=== PATIENT | male | born 1980 | race Caucasian/White ===

== ENCOUNTER 2016-05-27 22:12 | Emergency (ER) | payer SELFPAY ==
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
[2016-05-27] MEDS ORDERED: HYDROcodone /APAP 5/325 1 EACH TABLET PO ONE (23:51)
[2016-05-27] MEDS ORDERED: CYCLOBENZAPRINE HCL 5 MG TABLET PO ONE (23:51)
[2016-05-27] MEDS ORDERED: predniSONE 20 MG TABLET PO ONE (23:51)
[2016-05-28 01:15] VITALS: BP 132/88
== END 2016-05-28 00:20 | disposition home or self-care (01) ==
LOC: ED 22:12
DX: S39.92XA Unspecified injury of lower back, initial encounter (principal); M54.32 Sciatica, left side; V43.62XA Car passenger injured in collision with other type car in traffic accident, initial encounter; Y92.410 Unspecified street and highway as the place of occurrence of the external cause; Y93.9 Activity, unspecified; Y99.9 Unspecified external cause status
CPT/HCPCS: 72131; A9270; 99283

== ENCOUNTER 2017-01-05 20:29 | Emergency (ER) | payer OTHER ==
[2017-01-05 21:11] VITALS: BP 112/69
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
--- NOTE | 2017-01-06 06:30 | Diagnostic Imaging Report ---
ELISABETH PINOT [facility] [address] [facility] [address] [address] Report Submission Date: Jan 05, 2017 9:18:36 PM CDT Patient Study Name: ANGELICA BURGOS Date: Jan 05, 2017 8:59:46 PM CDT Modality Type: CR Gender: M Description: LOWER EXTREMITY : 84 Institution: [facility] Physician: ELISABETH PINTO Right ankle 3 views History: Pain after injury Findings: Diffuse right ankle soft tissue swelling is present without fracture, dislocation, arthropathy, or focal bone lesion. Electronically signed on Jan 05, 2017 9:18:36 PM CDT by: Ean SENA
== END 2017-01-05 21:20 | disposition home or self-care (01) ==
LOC: ED 20:29
DX: S93.401A Sprain of unspecified ligament of right ankle, initial encounter (principal); X58.XXXA Exposure to other specified factors, initial encounter; Y93.9 Activity, unspecified; Y99.9 Unspecified external cause status; K76.9 Liver disease, unspecified; F10.20 Alcohol dependence, uncomplicated
CPT/HCPCS: 73610; 99283

== ENCOUNTER 2017-02-07 14:54 | Outpatient (CLI) | payer OTHER ==
[2017-02-07 15:11] LABS: BASOPHILS % 1.2 (0.0-1.5); EOSINOPHILS % 4.9 % (0.0-6.8); MEAN CORPUSCULAR HEMOGLOBIN 32.6 pg (28.0-34.0); MEAN CORPUSCULAR VOLUME 100.1 fl (80.0-100.0); MONOCYTES % 6.6 % (0.0-11.0); NEUTROPHILS # 3.5 # k/uL (1.4-7.7)
[2017-02-07 15:37] LABS: eGFR (African) > 60; eGFR (Non-African) > 60
[2017-02-08 02:02] LABS: DIRECT BILIRUBIN 0.9 mg/dL (<0.4); TOTAL PROTEIN 8.5 g/dL (6.0-8.5)
== END 2017-02-07 14:55 ==
LOC: LAB 14:54
PROVIDERS: ATTEND Physician Assistant
DX: K74.60 Unspecified cirrhosis of liver (principal)
CPT/HCPCS: 36415; 80053; 80076; 82140; 85025; 85610

== ENCOUNTER 2017-04-14 20:15 | Emergency (ER) | payer OTHER ==
--- NOTE | 2017-04-14 22:10 | ED Physician Documentation ---
Ankle Injury - HISTORIAN Historian: patient - HPI Stated Complaint: RLE INJ Chief Complaint: Ankle Injury Additional Information: kicked coffee table Onset: hours (1) Where: home Severity: moderate r: direct blow Associated Symptoms:: other (pain but able to ambulate) Modifying Factors:: pain on movement Further Comments: no - ROS CONST: no problems CVS/RESP: none NEURO: denies: headache, head injury, dizziness GI/: denies: problems urinating, nausea, vomiting MS/SKIN/LYMPH: ankle swelling - PAST HX Past History: none Immunizations: referred to PCP Allergies/Adverse Reactions: Allergies Allergy/AdvReac Type Severity Reaction Status Date / Time No Known Allergies Allergy Verified 04/14/17 21:20 Home Medications: Ambulatory Orders Medication Instructions Recorded Chlorzoxazone 500 mg PO QID u2 06/04/16 - SOCIAL HX Smoking History: cigarettes Alcohol Use: none Drug Use: none - FAMILY HX Family History: no significant history - VITAL SIGNS Vital Signs: Vital Signs Temp Pulse Resp BP Pulse Ox 98.4 F 94 H 18 131/75 99 04/14/17 20:15 04/14/17 20:15 04/14/17 20:15 04/14/17 20:15 04/14/17 20:15 - REVIEWED ASSESSMENTS Nursing Assessment Reviewed: Yes Vitals Reviewed: Yes Progress - Results/Orders Results/Orders: tib/fib x-ray and right ankle x-ray ordered - Progress Progress: pt. discharged with tyrese bandage and air splint Critical Care Note - Critical Care Note Total Time (mins): 0 ED Results Lab/Radiology - Lab Results Lab Results: none ordered - Radiology Radiology Impressions: x-ray right ankle and tib/fib neg - Orders Orders: ED Orders Category Date Time Status ANKLE 3 VIEWS OR MORE [RAD] Stat Exams 04/14/17 Taken TIBIA & FIBULA 2 VIEW [RAD] Stat Exams 04/14/17 Taken Ankle Injury Physical Exam - Physical Exam General Appearance: alert, moderate distress Foot: right foot: non-tender, normal inspection, normal range of motion, no evidence of injury Ankle: right: swelling (lateral aspect, no deformity) Gait: limited by pain Neuro: sensation nml, motor nml Vascular: no vascular compromise Tendons: tendon function nml, tendon visualized Leg/Knee/Thigh: uninjured above ankle. No: swelling, soft-tissue tenderness, bony tenderness Skin: intact Head/ENT: nml inspection, pharynx nml Neck/Back: nml inspection, non-tender Resp/CVS: chest non-tender, breath sounds nml, heart sounds nml, no resp. distress, lungs clear, reg. rate & rhythm Abdomen: non-tender, pelvis stable Discharge Clincal Impression: Ankle sprain Qualifiers: Encounter type: initial encounter Involved ligament of ankle: calcaneofibular ligament Laterality: right Qualified Code(s): S93.411A - Sprain of calcaneofibular ligament of right ankle, initial encounter Referrals: Chemo Fox PA [Primary Care Provider] - 2 Days Comments: Discharged in stable condition with tyrese, ice, elevation, air splint. Script for meloxicam 1 pill twice daily for 5 days. Condition: Stable Disposition: 01 HOME, SELF-CARE Decision to Admit: NO Decision Time: 22:09
[2017-04-14] MEDS: KETOROLAC TROMETHAMINE 60 MG/2 ML VIAL IM ONE (22:20)
[2017-04-14 22:33] VITALS: BP 125/72
--- NOTE | 2017-04-15 00:40 | Diagnostic Imaging Report ---
LEIDY MENDEZ [facility] [address] [facility] [address] [address] Report Submission Date: Apr 14, 2017 10:06:25 PM ADOLESCENT PSYCHIATRIST Patient Study Name: ANGELICA BURGOS Date: Apr 14, 2017 9:31:50 PM ADOLESCENT PSYCHIATRIST Modality Type: CR Gender: M Description: LOWER EXTREMITY : 84 Institution: [facility] Physician: LEIDY MENDEZ Right ankle 3 views History: Pain after twisting injury Findings: The right ankle is intact without fracture, dislocation, arthropathy, or focal bone lesion. Electronically signed on Apr 14, 2017 10:06:25 PM ADOLESCENT PSYCHIATRIST by: Ean SENA
--- NOTE | 2017-04-15 00:40 | Diagnostic Imaging Report ---
LEIDY MENDEZ [facility] [address] [facility] [address] Report Submission Date: Apr 14, 2017 10:05:47 PM URGENT CARE PHYSICIAN ASSISTANT Patient Study Name: ANGELICA BURGOS Date: Apr 14, 2017 9:30:31 PM URGENT CARE PHYSICIAN ASSISTANT Modality Type: CR Gender: M Description: LOWER EXTREMITY : 84 Institution: [facility] Physician: LEIDY MENDEZ Right tibia fibula 2 views History: Pain after twisting injury Findings: The right tibia and fibula are intact without fracture, dislocation, arthropathy, or focal bone lesion. Electronically signed on Apr 14, 2017 10:05:47 PM URGENT CARE PHYSICIAN ASSISTANT by: Ean SENA
== END 2017-04-14 22:25 | disposition home or self-care (01) ==
LOC: ED 20:15
DX: S93.411A Sprain of calcaneofibular ligament of right ankle, initial encounter (principal); X58.XXXA Exposure to other specified factors, initial encounter; Y92.9 Unspecified place or not applicable; Y93.9 Activity, unspecified; Y99.9 Unspecified external cause status
CPT/HCPCS: 73590; 73610; J1885; L4350; 96372; 99283

== ENCOUNTER 2017-05-14 18:45 | Emergency (ER) | payer OTHER ==
--- NOTE | 2017-05-14 18:54 | ED Physician Documentation ---
General Adult - HISTORIAN Historian: patient - HPI Chief Complaint: Seizure Additional Information: Patient states on Nov 28 he had a seizure. February had had two seizures. Was seen at [facility]. Was started on [id number] q 12 hours. Not sure if blood levels are at therapeutic levels or not. Has had one or two seizures since Mar. No precipitating factors noted. Tonight felt that a seizure might be coming on. Feels that he was having an irregular heart beat that indicates that a seizure may be imminent. Patient is living with his dad. Patient is not sure what type of seizures, believes that might be tonic clonic in nature. Has not seen a neurologist since February. Has seen Dr Davis. Has not skipped any doses. Denies any illness, no sleep depravation noted. Timing: better Modifying Factors: no precipitating cause - ROS CONST: no problems. denies: fever, chills EYES/ENT: none, other (no eye symptoms) CVS/RESP: none GI/: none MS/SKIN/LYMPH: none NEURO/PSYCH: denies: headache, fainting, dizziness, tingling, numbness, difficulty walking - PAST HX Past History: hypertension Other History: none Surgeries/Procedures: other (right eye surgery secondary to trauma) Immunizations: referred to PCP Allergies/Adverse Reactions: Allergies Allergy/AdvReac Type Severity Reaction Status Date / Time No Known Allergies Allergy Verified 04/14/17 21:20 - SOCIAL HX Smoking History: non-smoker Alcohol Use: occasionally Drug Use: none - FAMILY HX Family History: No - VITAL SIGNS Vital Signs: Vital Signs Temp Pulse Resp BP Pulse Ox 125/72 04/14/17 22:25 - REVIEWED ASSESSMENTS Nursing Assessment Reviewed: Yes Vitals Reviewed: Yes General Adult Physical Exam - PHYSICAL EXAM GENERAL APPEARANCE: no distress EENT: ENT inspection normal NECK: normal inspection, thyroid normal, supple RESPIRATORY: no resp distress, chest non-tender, breath sounds normal. No: wheezes, rales, rhonchi CVS: reg rate & rhythm, heart sounds normal, equal pulses, no murmur, no gallop ABDOMEN: soft, no organomegaly, normal bowel sounds, no abdominal bruit, no distension SKIN: warm/dry, normal color NEURO: oriented X3, CN's nml as tested, motor nml, sensation nml, mood/affect nml Discharge Clincal Impression: Seizure Referrals: Chemo Fox PA [Primary Care Provider] - 2 Days Additional Instructions: Continue with present medications. Call in several days to get Keppra level information.If you have any further problems to let me know or return ot the ED. Condition: Stable Disposition: 01 HOME, SELF-CARE Decision to Admit: NO Date of Decison to Admit: 05/14/17 Decision Time: 21:15
[2017-05-14 19:50] LABS: eGFR (African) > 60; eGFR (Non-African) > 60
[2017-05-14 21:42] VITALS: BP 128/72
[2017-05-15 17:31] LABS: BASO % 1.3 % (0.0-1.5); EOS % 4.2 % (0.0-6.8); LYMPH ABS # 1.44 thou/uL (0.60-4.00); MCV 103.8 fL (80.0-100.0); MONOCYTE % 6.5 % (0.0-11.0); MONOCYTE ABS # 0.42 thou/uL (0.00-0.90); PLATELET COUNT 97 thou/uL (130-400)
== END 2017-05-14 21:20 | disposition home or self-care (01) ==
LOC: ED 18:45
DX: R56.9 Unspecified convulsions (principal)
CPT/HCPCS: 80053; 80177; 85025; 99282; 99283

== ENCOUNTER 2018-09-23 23:34 | Emergency (ER) | payer OTHER ==
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
[2018-09-24 00:44] LABS: BASOPHILS % 0.4 % (0.0-1.5); NEUTROPHILS # 3.5 # k/uL (1.4-7.7)
[2018-09-24 00:48] LABS: eGFR (Non-African) > 60
--- NOTE | 2018-09-24 00:49 | Diagnostic Imaging Report ---
PENNIE SOLANO [facility] [address] [facility] [address] [address] Report Submission Date: Sep 24, 2018 12:47:30 AM CDT Patient Study Name: ANGELICA BURGOS Date: Sep 24, 2018 12:21:00 AM CDT Modality Type: CT\SR Gender: M Description: CT LUMBAR W/O CONTRAST : 84 Institution: [facility] Physician: PENNIE SOLANO CT of the lumbar spine Clinical history: Pain in the lower back. Patient found down. Technique: CT of the lumbar spine is performed in contiguous axial slices with sagittal and coronal reconstructions. Findings: The alignment of the vertebrae is anatomic. There is bilateral spondylolysis at L5 without anterolisthesis. Multiple small gallstones are incidentally noted in the gallbladder. There is no evident fracture. Sacroiliac joints are symmetric. Impression: 1. Bilateral spondylolysis at L5 without spondylolisthesis. 2. Cholelithiasis. Electronically signed on Sep 24, 2018 12:47:30 AM CDT by: Jay SENA
[2018-09-24] MEDS: levETIRAcetam 500 MG TABLET PO ONE (00:50)
--- NOTE | 2018-09-24 00:50 | Diagnostic Imaging Report ---
PENNIE SOLANO [facility] [address] [facility] [address] [place], [place]. [address] Report Submission Date: Sep 24, 2018 12:49:59 AM CDT Patient Study Name: ANGELICA BURGOS Date: Sep 24, 2018 12:14:09 AM CDT Modality Type: CT\SR Gender: M Description: C-SPINE : 84 Institution: [facility] Physician: PENNIE SOLANO CT cervical spine. Date of study: CLINICAL HISTORY: FOUND DOWN, PAIN TECHNIQUE: 2.5 mm contiguous axial images of the cervical spine with sagittal and coronal reconstructions. FINDINGS: The cervical spine alignment is normal. The cervical vertebral bodies are of normal height and the intervertebral disc spaces are of average width. The cervical vertebral bodies and posterior elements are intact. The spinal canal diameter is normal. There is no evidence of acute fracture or subluxation. The facets are in proper relationship bilaterally. The craniocervical and cervicothoracic junctions are normal. IMPRESSION: No evidence of acute cervical spine fracture or subluxation. Electronically signed on Sep 24, 2018 12:49:59 AM CDT by: Jay SENA
--- NOTE | 2018-09-24 00:51 | Diagnostic Imaging Report ---
PENNIE SOLANO [facility] [address] [facility] [address] [place], [place]. [address] Report Submission Date: Sep 24, 2018 12:48:25 AM CDT Patient Study Name: ANGELICA BURGOS Date: Sep 24, 2018 12:09:51 AM CDT Modality Type: CT\SR Gender: M Description: CT BRAIN W/O CONTRAST : 84 Institution: [facility] Physician: PENNIE SOLANO CT brain noncontrast Date of study: 09/24/2018. CLINICAL HISTORY: FOUND DOWN, PAIN TECHNIQUE: 5 mm contiguous axial images of the brain, noncontrast with sagittal and coronal multiplanar reconstructions. FINDINGS: There is no evidence of intracranial mass effect, hemorrhage, or acute infarct. The lateral ventricles are symmetrical and the 4th ventricle is midline without shift. No acute brain parenchymal changes or extra-axial fluid collections are identified. The posterior fossa contents are within normal limits. The calvarium is intact. The visualized sinuses and mastoid air cells are clear. IMPRESSION: No acute intracranial process. Electronically signed on Sep 24, 2018 12:48:25 AM CDT by: Jay SENA
[2018-09-24] MEDS: 0.9 % SODIUM CHLORIDE 1,000 ML IV ONE (01:19)
[2018-09-24 06:45] VITALS: BP 120/57
== END 2018-09-24 01:25 | disposition home or self-care (01) ==
LOC: ED 23:34
DX: F10.920 Alcohol use, unspecified with intoxication, uncomplicated (principal); K80.20 Calculus of gallbladder without cholecystitis without obstruction
CPT/HCPCS: 70450; 72125; 72131; 80053; 80320; 84484; 85025; 96360; 99283; 99284; G0480; S1016